=== PATIENT | male | born 1970 | race Caucasian/White ===

== ENCOUNTER 2021-06-12 09:19 | Emergency (ER) | payer MEDICAID ==
[~2021-06-12] VITALS: Ht 172.7 cm; Wt 108.9 kg
--- NOTE | 2021-06-12 10:00 | NUR ---
Patient to ER bed 4 for evaluation. Side rails up. [facility].
[2021-06-12 10:02] VITALS: BP_SYST 137
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
--- NOTE | 2021-06-12 10:15 | NUR ---
ER at bedside examining patient.
[2021-06-12] MEDS ORDERED: KETOROLAC TROMETHAMINE 60 MG/2 ML VIAL IM ONE (10:30)
[2021-06-12] MEDS ORDERED: NAPR-688 PO (10:40)
[2021-06-12 11:24] VITALS: BP_SYST 142
--- NOTE | 2021-06-12 11:25 | NUR ---
Patient given written and verbal discharge instructions and verbalizes understanding. ER discussed with patient the results and treatment provided. Patient in stable condition. ID arm band removed. Rx of Naproxen given. Patient educated on pain management and to follow up with PMD. Pain Scale 0. Opportunity for questions provided and answered. Medication side effect fact sheet provided.
== END 2021-06-12 11:24 | disposition home or self-care (01) ==
LOC: SED 09:19
DX: S29.011A Strain of muscle and tendon of front wall of thorax, initial encounter (principal); Z79.899 Other long term (current) drug therapy; X50.3XXA Overexertion from repetitive movements, initial encounter; Y93.89 Activity, other specified; Y92.89 Other specified places as the place of occurrence of the external cause; Y99.8 Other external cause status
CPT/HCPCS: 71045; 96372; 99283; J1885